=== PATIENT | female | born 1965 | race Caucasian/White ===

== ENCOUNTER 2022-01-17 20:14 | Emergency (ER) | payer BC ==
[~2022-01-17] VITALS: Ht 178 cm; Wt 113.4 kg
[2022-01-17 21:05] VITALS: BP 151/88
--- NOTE | 2022-01-17 21:36 | ED Upper Extremity ---
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 They live in [place] and will be traveling home tomorrow by car. Onset: just prior to arrival Severity: moderate Allergies and Home Medications Allergies Coded Allergies: No Known Drug Allergies (Unverified , 01/17/22) Patient Home Medication List Home Medication List Reviewed: Yes Review of Systems Constitutional: see HPI EENTM: see HPI Respiratory: no symptoms reported Cardiovascular: no symptoms reported Genitourinary: no symptoms reported Musculoskeletal: see HPI Skin: no symptoms reported Psychiatric/Neurological: No Symptoms Reported Physical Exam Vital Signs Vital Signs - First Documented 01/17/22 21:05 Temp 37.0 Pulse 65 Resp 20 B/P (MAP) 151/88 (109) Pulse Ox 97 Capillary Refill : Height, Weight, BMI Height: '" Weight: lbs. oz. kg; BMI Method: General Appearance: WD/WN, no apparent distress HEENT: PERRL/EOMI, normal ENT inspection Respiratory: no respiratory distress, no accessory muscle use Gastrointestinal: normal bowel sounds, non tender Elbow/Forearm: Left, limited ROM, pain, soft tissue tenderness, swelling (proximal forearm swelling. No open wounds this is a closed fracture. NOrmal sensation and motor function at fingertips. ) Wrist: Yes normal inspection, Yes non-tender Hand: normal inspection, non-tender, abrasions (to the RIGHT hand) Neurologic/Psychiatric: alert, normal mood/affect, oriented x 3 Skin: normal color, warm/dry Progress/Results/Core Measures Results/Orders My Orders Orders - BRYON MC APRN Elbow, Left, 3 Views (01/17/22 20:54) Rx-Hydrocodone/Apap 5-325 Mg (Rx-Vicodin (01/17/22 21:45) Dipht,Pertuss(Acell),Tet Adult (Boostrix (01/17/22 22:00) Morphine Injection (Morphine Injection (01/17/22 22:10) Vital Signs/I&O 01/17/22 21:05 Temp 37.0 Pulse 65 Resp 20 B/P (MAP) 151/88 (109) Pulse Ox 97 Departure Communication (Admissions) NAME: DL HARTMAN REC#: [id number] PT STATUS: REG ER : 1965 PHYSICIAN: BRYON MC APRN ADMIT DATE: 01/17/22/ER Draft Date of Exam:01/17/22 ELBOW, LEFT, 3 VIEWS CLINICAL INDICATIONS: Patient status post fall with elbow pain. EXAM: X-ray of the left elbow, 3 views. COMPARISON: None. FINDINGS AND IMPRESSION: 1: There is a comminuted and distracted slightly displaced fracture involving the proximal ulnar diaphysis. There is no definite intra-articular extension seen on this exam. There is grossly 6 mm of posterior displacement of the distal fracture fragment. There is a small elbow effusion. 2: Questionable fracture of the ulnar head with lucency seen through the radial head region and slight buckling of the ventral aspect of the radial head/neck junction region. Radial head view would better evaluate if patient is able to tolerate. 3: There is soft tissue swelling adjacent to the elbow. There is no other fracture seen. 4: There is spurring of the coronoid process of the proximal ulna. Dictated on workstation # [id number] Dict: 01/17/222140 Trans: 01/17/222150 LOCATED WITHIN [facility] [id number] Interpreted by: NA MORALES MD Electronically signed by: placed in a posterior long arm splint using 4 inch orthoglass and given a sling. Impression Primary Impression: Elbow fracture, left Disposition: 01 HOME, SELF-CARE Condition: Stable Departure-Patient Inst. Decision time for Depature: 21:35 Referrals: DADA TRINH MD, TERRY D MD ZAFUTA, MICHAEL P MD Patient Instructions: Elbow Fracture (DC) Add. Discharge Instructions: 1. Keep the splint on, clean, and dry at all times until you follow up with an orthopedic surgeon of you choosing. Pain medication as directed. All discharge instructions reviewed with patient and/or family. Voiced understanding. BRYON MC APRN January 17, 2022 21:36
--- NOTE | 2022-01-17 21:53 | Diagnostic Imaging Report ---
CLINICAL INDICATIONS: Patient status post fall with elbow pain. EXAM: X-ray of the left elbow, 3 views. COMPARISON: None. FINDINGS AND IMPRESSION: 1: There is a comminuted and distracted slightly displaced fracture involving the proximal ulnar diaphysis. There is no definite intra-articular extension seen on this exam. There is grossly 6 mm of posterior displacement of the distal fracture fragment. There is a small elbow effusion. 2: Questionable fracture of the radial head with lucency seen through the radial head region and slight buckling of the ventral aspect of the radial head/neck junction region. Radial head view would better evaluate if patient is able to tolerate. 3: There is soft tissue swelling adjacent to the elbow. There is no other fracture seen. 4: There is spurring of the coronoid process of the proximal ulna. Dictated by: Dictated on workstation # [id number]
[2022-01-17] MEDS ORDERED: TETANUS,DIPTH,PERTUSS P/F (BOOSTRIX) 0.5 ML VIAL IM ONE (22:00)
[2022-01-17] MEDS ORDERED: morphine INJ 10 MG/ML 1ML (SYR OR VIAL) IM STA (22:10)
== END 2022-01-17 23:00 | disposition home or self-care (01) ==
LOC: ER 20:19
DX: S52.042A Displaced fracture of coronoid process of left ulna, initial encounter for closed fracture (principal); W19.XXXA Unspecified fall, initial encounter
CPT/HCPCS: 29105; 73080; 90715